=== PATIENT | female | born 1965 | race Caucasian/White ===

== ENCOUNTER 2020-08-27 16:39 | Outpatient (CLI) | payer OTHER, SELFPAY ==
--- NOTE | ~2020-08-27 | XR_ITS ---
EXAMINATION: XR lumbar spine 2-3V DATE: 08/27/2020 17:06 INDICATION: Low back pain TECHNIQUE: Anteroposterior and lateral views of the lumbar spine, and cone-down lateral view of the l umbosacral junction were obtained. COMPARISON: None. FINDINGS: The vertebral body heights and alignment are normal. There is moderate to severe loss of in tervertebral disc space height at L5-S1. There is no fracture. Moderate facet osteoarthritis is noted in the lower lumbar spine. Phleboliths are noted in the pelvis. IMPRESSION: 1. Moderate lumbar spondylosis at L5-S1. Reviewed, dictated and finalized at location A. [employer]
== END 2020-08-27 16:40 | disposition home or self-care (01) ==
PROVIDERS: PCP Nurse Practitioner Family; Visit Provider Nurse Practitioner Family
DX: M47.897 Other spondylosis, lumbosacral region (principal)
CPT/HCPCS: 72100

== ENCOUNTER 2021-11-27 16:33 | Emergency (ER) | payer MEDICAID, SELFPAY ==
--- NOTE | ~2021-11-27 | XR_ITS ---
EXAMINATION: XR chest 2V DATE: 11/27/2021 16:56 INDICATION: Cough TECHNIQUE: PA and lateral views of the chest were obtained. COMPARISON: None FINDINGS: Patchy airspace opacities at the posterior left lung base consistent with likely left lower lobe pneu monia. No pleural effusion or pneumothorax. The cardiomediastinal silhouette is normal. Mild to moder ate thoracic spondylosis. IMPRESSION: 1. Patchy lung disease in the basilar left lower lobe which could represent pneumonia or aspiration i n the appropriate clinical setting. Reviewed, dictated and finalized at location A. IMPRESSION: 1. Patchy lung disease in the basilar left lower lobe which could represent pne umonia or aspiration in the appropriate clinical setting.
--- NOTE | 2021-11-27 16:41 | ED.GENADULT ---
HPI - General Adult General Chief complaint: Upper Respiratory Infection Stated complaint: Cough, headache Time Seen by Provider: 11/27/21 16:41 Source: patient and RN notes reviewed Mode of arrival: ambulatory Limitations: no limitations History of Present Illness HPI narrative: 56-year-old female presented for complaint of sinus pressure and congestion, cough for about 5 days. Endorses yellow/green sputum, fever, chills, and ears feel like they have fluid. Headache pain rates 9 out of 10. She had a negative rapid COVID test 3 days ago. Denies chest pain, shortness of breath, wheezing, nausea, vomiting, diarrhea. She has taken ibuprofen and Mucinex for symptoms. She has not been vaccinated for COVID or flu. Related Data Allergies Allergy/AdvReac Type Severity Reaction Status Date / Time No Known Allergies Allergy Verified 11/27/21 16:48 Review of Systems Review of Systems: CONSTITUTIONAL: Endorses chills, sweats, fever EYES: Denies visual changes, redness, or discharge ENT: Reports rhinorrhea, congestion, sinus pain, otalgia, sore throat CARDIOVASCULAR: Denies chest pain, palpitations, edema RESPIRATORY: Reports cough, post nasal drainage. Denies dyspnea GASTROINTESTINAL: Denies abdominal pain, nausea, vomiting, diarrhea SKIN: Denies rash or itching MUSCULOSKELETAL: Denies myalgia NEUROLOGIC: Endorses headache Exam Narrative: GENERAL: Ill-appearing, nontoxic HEAD: Normocephalic EYES: conjunctivae clear ENT: Mucous membranes moist. TM pearly persaud with dull light reflex bilaterally; no tragal tenderness. Oropharynx erythematous without lesions or exudate, no drooling, no hoarseness, no trismus, uvula midline. NECK: Supple. No lymphadenopathy CHEST: LLL exp wheezing, rub noted; RLL faint exp wheeze. No respiratory distress, speaks in full sentences. HEART: Regular rate and rhythm. No murmur heard. SKIN: Warm, and moist NEURO: Alert and oriented x3. PSYCH: Normal mood and affect Course Course Emergency Course: Patient is aware of diagnosis, understands and agrees to treatment plan. Anticipatory guidance given. Patient agrees to follow-up as directed and is aware of reasons to seek care at the emergency department. Portions of this record may have been created with voice recognition software Level of Care: Express Care Visit Vital Signs Vital signs: Vital Signs Temperature 97.9 F 11/27/21 16:44 Pulse Rate 94 11/27/21 16:44 Respiratory Rate 18 11/27/21 16:44 Blood Pressure 111/63 11/27/21 16:44 Pulse Oximetry 95 11/27/21 16:44 Temperature 97.9 F 11/27/21 16:44 Pulse Rate 94 11/27/21 16:44 Respiratory Rate 18 11/27/21 16:44 Blood Pressure 111/63 11/27/21 16:44 Pulse Oximetry 95 11/27/21 16:44 reviewed Medical Decision Making MDM Narrative Medical decision making narrative: flu negative CXR c/w LLL pneumonia. She is advised on meds, supportive care and s/s to go to the ER . She is advised to f/u with pcp. v/u. Differential Diagnosis Differential Diagnosis: Influenza, covid, sinusitis, OM, strep pharyngitis, URI Vital Signs Vital Signs: Vital Signs Temperature 97.9 F 11/27/21 16:44 Pulse Rate 94 11/27/21 16:44 Respiratory Rate 18 11/27/21 16:44 Blood Pressure 111/63 11/27/21 16:44 Pulse Oximetry 95 11/27/21 16:44 Temperature 97.9 F 11/27/21 16:44 Pulse Rate 94 11/27/21 16:44 Respiratory Rate 18 11/27/21 16:44 Blood Pressure 111/63 11/27/21 16:44 Pulse Oximetry 95 11/27/21 16:44 Imaging Data Radiologist's impression: Ordering Physician: Daxa Black APRN Date of Service: 11/27/21 Procedure(s): XR chest 2V Accession Number(s): [id number] cc: Daxa Black APRN; FELIPE,CIRO ESTEBAN~ EXAMINATION: XR chest 2V DATE: 11/27/2021 16:56 INDICATION: Cough TECHNIQUE: PA and lateral views of the chest were obtained. COMPARISON: None FINDINGS: Patchy airspace opacities at the posterior left lung base consistent
[2021-11-27 16:44] VITALS: BP 111/63; PULSE 94; RESP 18; TEMP 36.6; O2SAT 95
== END 2021-11-27 17:22 | disposition home or self-care (01) ==
PROVIDERS: Emergency Provider Nurse Practitioner Family; PCP Nurse Practitioner Family
DX: J18.1 Lobar pneumonia, unspecified organism (principal)
CPT/HCPCS: 71046; 99213; G0463